=== PATIENT | male | born 1960 | race Hispanic/Latino ===

== ENCOUNTER 2021-05-04 15:38 | Emergency (ER) | payer OTHER ==
[~2021-05-04] VITALS: Ht 182.9 cm; Wt 120.0 kg
[2021-05-04 16:51] LABS: HEMOGLOBIN 14.1 g/dl (14.0-18.0); IMMATURE GRANULOCYTES 0.2 % (0.0-5.0); MEAN CELL VOLUME 87.9 fL CALC (80.0-100.0); MEAN CORPUSCULAR HGB 29.5 pG CALC (26.0-32.0); MEAN CORPUSCULAR HGB CONC 33.6 g/dL CAL (32.0-36.0); NEUT# 7.61 thou/uL (1.82-7.42); RED BLOOD COUNT 4.78 mill/uL (4.70-6.10); RED CELL DISTRI WIDTH 12.4 % (11.5-15.5)
[2021-05-04 17:05] LABS: ALBUMIN 4.2 g/dL (3.2-5.0); ALKALINE PHOSPHATASE 122 u/l (38-126); AMYLASE 85 u/l (30-110); ANION GAP 14 (6-22 (CALC)); BILIRUBIN, TOTAL 0.4 mg/dL (0.0-1.4); BUN 19 mg/dL (9-20); BUN/CREATININE RATIO 22 (12-20 (CALC)); CARBON DIOXIDE 26 mmol/l (22-30); CHLORIDE 96 mmol/l (95-108); CREATININE 0.9 mg/dL (0.7-1.3); ETHYL ALCOHOL 0 mg/dl (0-30); GFR > 60 ML/MIN (>=60 (CALC)); GFR FOR AFR.AMER. > 60 ML/MIN (>=60 (CALC)); LIPASE 324 u/l (23-300); POTASSIUM 4.6 mmol/l (3.5-5.1); SGOT/AST 20 u/l (17-59); SODIUM 132 mmol/l (137-146); TOTAL PROTEIN 7.7 g/dL (6.3-8.2)
[2021-05-04 17:27] LABS: ACT PARTIAL THROMBO TIME 20.8 SECONDS (20.0-32.5); PROTHROMBIN TIME 10.1 SECONDS (9.0-12.5)
[2021-05-04] MEDS ORDERED: ASPIRIN81 MG PO (17:32)
[2021-05-04] MEDS ORDERED: NORVASC PO (17:32)
[2021-05-04] MEDS ORDERED: LIPITOR20 M1 PO (17:32)
[2021-05-04] MEDS ORDERED: LOSARTAN POTASS50 MG PO (17:33)
[2021-05-04] MEDS ORDERED: METFORMIN HCL1000 MG PO (17:33)
[2021-05-04] MEDS ORDERED: LEVEMIR100 UNIT SC (17:34)
[2021-05-04 21:49] LABS: URINE BILIRUBIN - DIPSTICK NEGATIVE (NEGATIVE); URINE BLOOD DIPSTICK NEGATIVE (NEGATIVE); URINE COLOR YELLOW; URINE GLUCOSE - DIPSTICK >=1000 mg/dL (NEGATIVE); URINE KETONE NEGATIVE (NEGATIVE); URINE LEUK ESTERASE NEGATIVE (NEGATIVE); URINE PROTEIN - DIPSTICK NEGATIVE (NEG-TRACE); URINE UROBILINOGEN - DIPSTICK 0.2 E.U./dL (0.2)
[2021-05-04 21:52] LABS: URINE NITRITE - DIPSTICK NEGATIVE (Negative)
[2021-05-04] MEDS ORDERED: ZOFRAN4 MG/TAB PO (22:03)
[2021-05-04 23:27] VITALS: BP 146/70
--- NOTE | 2021-05-08 15:21 | NUR ---
LATE ENTRY: PRELIM BLOOD CX SHOWS GRAM POSITIVE COCCI IN 1 OF [address] WILLS. NO NEW ORDERS RECD. WILL F/U WITH FINAL RESULTS
== END 2021-05-04 23:33 | disposition home or self-care (01) | DRG 392 ==
LOC: ED 15:38
DX: A08.4 Viral intestinal infection, unspecified (principal); R07.9 Chest pain, unspecified; E11.9 Type 2 diabetes mellitus without complications; Z79.4 Long term (current) use of insulin; Z20.822 Contact with and (suspected) exposure to COVID-19
CPT/HCPCS: Q9967; S0164